=== PATIENT | female | born 1930 | race Hispanic/Latino ===

== ENCOUNTER 2019-01-08 17:46 | Inpatient (IN) | payer MEDICARE, OTHER ==
[~2019-01-08] VITALS: Ht 144.8 cm; Wt 68.1 kg
[2019-01-08] MEDS ORDERED: ONDANSETRON HCL 4 MG/2 ML VIAL ONE (18:28)
[2019-01-08] MEDS ORDERED: MORPHINE SULFATE 2 MG/ML 1ML SYG ONE ×2 (18:29→22:05)
[2019-01-08 19:13] LABS: BASOPHILS % (AUTO) 0.5 % (0.0-5.0); EOSINOPHILS % (AUTO) 2.1 % (0.0-8.0); HEMATOCRIT 31.2 % (36-48); LYMPHOCYTES % (AUTO) 23.4 % (21.0-51.0); MEAN CORPUSCULAR HEMOGLOBIN 30.4 pg (27.0-33.0); MEAN CORPUSCULAR HGB CONC 34.2 g/dL (32.0-36.0); MEAN CORPUSCULAR VOLUME 88.8 fL (79-99); MONOCYTES % (AUTO) 4.8 % (3.0-13.0); NEUTROPHILS % (AUTO) 69.2 % (40.0-77.0); PLATELET COUNT (AUTO) 131 K/uL (130-400); RED BLOOD CELL COUNT(AUTO) 3.52 MIL/uL (4.00-5.50); RED CELL DISTRIBUTION WIDTH 14.2 % (11.0-15.5); WHITE BLOOD COUNT (AUTO) 7.4 K/uL (4.8-10.8)
[2019-01-08 19:17] LABS: CREATININE 1.6 mg/dL (0.5-1.5)
[2019-01-08 19:22] LABS: BILIRUBIN,DIRECT 0.1 mg/dL (0.0-0.3); BILIRUBIN,TOTAL 0.4 mg/dL (0.2-1.0); TOTAL PROTEIN, SERUM 6.6 g/dL (6.0-8.3)
[2019-01-08 19:25] LABS: INR 0.97 (0.85-1.15); PARTIAL THROMBOPLASTIN TIME 29.4 SEC (26.3-35.5); PROTHROMBIN TIME 10.2 SEC (9.6-11.6)
[2019-01-08 19:37] LABS: B-TYPE NATRIURETIC PEPTIDE 105 pg/mL (0-100)
[2019-01-08] MEDS ORDERED: HYDRALAZINE HCL 20 MG/ML VIAL IV PRN (20:45)
[2019-01-08] MEDS ORDERED: ACETAMINOPHEN 325 MG TAB PO PRN ×2 (20:45)
[2019-01-08 21:00] VITALS: BP 123/52
[2019-01-08] MEDS: INSULIN HUMULIN R 100 UNIT/ML 3ML SQ SCH (21:00)
[2019-01-08] MEDS ORDERED: CARV25TA PO (21:33)
[2019-01-08] MEDS ORDERED: ESCI10TA54 PO (21:33)
[2019-01-08] MEDS ORDERED: FURO20TA4 PO (21:33)
[2019-01-08] MEDS ORDERED: ALBU8.5H8 IH (21:33)
[2019-01-08] MEDS ORDERED: FERR324T4 PO (21:33)
[2019-01-08] MEDS ORDERED: INSLAN SQ (21:33)
[2019-01-08] MEDS ORDERED: AMLO2.5T4 PO (21:33)
[2019-01-08] MEDS ORDERED: DOCU100C33 PO (21:33)
[2019-01-08] MEDS ORDERED: CETI10TA57 PO (21:33)
[2019-01-08] MEDS ORDERED: ASPI-1181 PO (21:33)
[2019-01-08] MEDS ORDERED: ONDA8TAB12 PO (21:33)
[2019-01-08] MEDS ORDERED: ESOM40CA54 PO (21:33)
[2019-01-08] MEDS ORDERED: ALPR0.255 PO ×2 (21:33)
[2019-01-08] MEDS ORDERED: GABA-529 PO (21:33)
[2019-01-08] MEDS ORDERED: PRAV40TA3 PO (21:33)
[2019-01-08] MEDS ORDERED: CYAN250010 PO (21:33)
[2019-01-08] MEDS ORDERED: MORPHINE SULFATE 4 MG/1ML SYG IV PRN (21:45)
[2019-01-08 22:26] LABS: APPEARANCE,URINE Clear (CLEAR); BILIRUBIN,URINE Negative (NEGATIVE); COLOR,URINE Yellow (YELLOW); GLUCOSE, URINE (UA) 250 mg/dL (NEGATIVE); KETONES,URINE Negative (NEGATIVE); LEUKOCYTE ESTERASE ,URINE Trace (NEGATIVE); NITRATE,URINE Negative (NEGATIVE); OCCULT BLOOD,URINE Negative (NEGATIVE); PROTEIN,URINE Negative (NEGATIVE); UROBILINOGEN,URINE 0.2 mg/dL (0.2-1.0)
[2019-01-08 22:36] LABS: BACTERIA,URINE Rare /HPF (None Seen); RBC,URINE 0-1 /HPF (0-1); WBC,URINE 0-1 /HPF (0-1)
[2019-01-08] MEDS ORDERED: MORPHINE SULFATE 4 MG/1ML SYG ONE (23:17)
[2019-01-08 23:42] VITALS: BP 111/57
[2019-01-08] MEDS: SODIUM CHLORIDE 0.9% 1000ML 1,000 ML IV SCH (23:51)
[2019-01-08] MEDS: FAMOTIDINE/PF 20 MG/2 ML VIAL IV SCH (23:51)
[2019-01-09] VITALS (29 sets, daily range): BP systolic 107–172; BP diastolic 45–72
[2019-01-09] MEDS ORDERED: HYDR-4153 PO (01:46)
[2019-01-09] MEDS ORDERED: NATE120T9 PO (01:46)
[2019-01-09 05:46] LABS: BASOPHILS % (AUTO) 0.3 % (0.0-5.0); EOSINOPHILS % (AUTO) 2.3 % (0.0-8.0); HEMATOCRIT 28.6 % (36-48); LYMPHOCYTES % (AUTO) 28.1 % (21.0-51.0); MEAN CORPUSCULAR HEMOGLOBIN 30.7 pg (27.0-33.0); MEAN CORPUSCULAR HGB CONC 34.9 g/dL (32.0-36.0); MONOCYTES % (AUTO) 7.6 % (3.0-13.0); NEUTROPHILS % (AUTO) 61.7 % (40.0-77.0); PLATELET COUNT (AUTO) 139 K/uL (130-400); RED BLOOD CELL COUNT(AUTO) 3.25 MIL/uL (4.00-5.50); RED CELL DISTRIBUTION WIDTH 13.8 % (11.0-15.5)
[2019-01-09] MEDS: INSULIN HUMULIN R 100 UNIT/ML 3ML SQ SCH ×3 (06:00→21:26)
[2019-01-09 06:06] LABS: INR 0.98 (0.85-1.15); PROTHROMBIN TIME 10.3 SEC (9.6-11.6)
[2019-01-09 08:58] LABS: HEMOGLOBIN A1C 9.7 % (4.0-6.0)
[2019-01-09] MEDS: CARVEDILOL 25 MG TABLET PO SCH ×2 (09:00→21:18)
[2019-01-09 09:03] LABS: CHOLESTEROL 150 mg/dL (<200); CREATINE KINASE, TOTAL 56 U/L (21-232); HDL CHOLESTEROL 142 mg/dL (35-85); LDL DIRECT 68 mg/dL (0-99); MYOGLOBIN 112 ng/mL (10-92); TRIGLYCERIDES 261 mg/dL (30-200); TROPONIN I < 0.04 ng/mL (0.00-0.06)
[2019-01-09] MEDS: DOCUSATE SODIUM 100 MG CAP PO SCH (09:15)
--- NOTE | 2019-01-09 09:25 | NUR ---
NEPHROLOGY DR. ANNE IN TO SEE PATIENT. NEW ORDERS RECEIVED.
[2019-01-09] MEDS: MORPHINE SULFATE 2 MG/ML 1ML SYG IVP PRN ×2 (10:24→16:22)
--- NOTE | 2019-01-09 10:40 | NUR ---
CARDIOLOGY DR. SALMERON IN TO SEE PATIENT FOR SURGERY CLEARANCE.
--- NOTE | 2019-01-09 12:11 | NUR ---
ANGELES MET W PT AND HER DAUGHTER AT [facility]. PT L[place], WITH ANOTHER DUAG[place]TER- WAS HERE ON VACATION\\ [place] HAS 2 STEP, USES A CANE ONLY, SEMI INDEPENDENT,DAUGHTER PROVIDES ALL CARE HERE DAUGHTER RAINER WILL PROVIDE ALL CARE. 'PT WILL STAY LONG NEEDED', DECLINING SNF. CALL TO [facility]- THEY WILL DO HH AND P-TX IF DR. KATE WRITES FOR IT. WILL AWAIT OUTCOME OF SURGERY. DCP HOME W/ HH/P-TX RXD BY DR. KATE. ADVISED DTR THAT IF PT IS STAYING, BEST TO ESTABLISH HERSELF W A PMD/CLINIC HERE Addendum: 01/09/19 at 1220 by ANUSHKA NAVA RN Amended: Links added.
[2019-01-09] MEDS: SODIUM CHLORIDE 0.9% 1000ML 1,000 ML IV SCH ×2 (13:15→22:10)
--- NOTE | 2019-01-09 16:19 | NUR ---
RD Notification Pt admitted for Trimalleolar Fracture, pending surgical procedure. Pt with advanced age. Obesity Class I (BMI 32.5). Pt with increased protein needs pending surgery due to advanced age; Rec Adv diet as tolerated when medically feasible, Add 30mL Promod TID. Pt monitored labs: BUN 22, Cr 1.6, GFR 32, Glu 291, A1C 9.7, EAG 232, TG 261, HDL 142, Alb 3.0. RD to continue to monitor. Please notify as additional nutrition concerns arise. Thank you. Addendum: 01/09/19 at [address] RD Amended: Links added.
--- NOTE | 2019-01-09 16:55 | NUR ---
TO OR HOLDING PATIENT TRANSFERRED TO OR HOLDING WITH FAMILY AT SIDE. SHE IS AWAKE AND ALERT WITH NO SIGNS OF DISTRESS NOTED.
[2019-01-09] MEDS ORDERED: CEFAZOLIN SODIUM 1 GM VIAL ONE (17:09)
[2019-01-09] MEDS ORDERED: PROPOFOL 10 MG/ML 20ML VIAL IV ONE (17:17)
[2019-01-09] MEDS ORDERED: ROCURONIUM 10MG/1ML SYR 10 MG/ML ML ONE (17:17)
[2019-01-09] MEDS ORDERED: PHENYLEPHRINE HCL 10 MG/ML 1ML VIAL IV ONE (17:34)
[2019-01-09] MEDS ORDERED: FENTANYL CITRATE PF 50 MCG/1 ML 2ML VIAL ONE (17:57)
[2019-01-09] MEDS ORDERED: LIDOCAINE 2%-EPI 1:200,000 20 ML VIAL IJ ONE (18:48)
[2019-01-09] MEDS ORDERED: ROPIVACAINE 0.5% 5MG/ML 30ML IJ ONE (18:48)
[2019-01-09] MEDS ORDERED: SODIUM CHLORIDE 0.9% 1000ML 1,000 ML IV SCH (18:50)
[2019-01-09] MEDS ORDERED: GLYCOPYRROLATE 1 MG/5 ML SYRINGE ONE (18:52)
[2019-01-09] MEDS ORDERED: NEOSTIGMINE 5MG/5ML SYR IV ONE (18:52)
[2019-01-09] MEDS ORDERED: TRAMADOL HCL 50 MG TABLET PO PRN (19:00)
[2019-01-09] MEDS ORDERED: FERROUS FUMARATE 324 MG TABLET PO PRN (19:00)
[2019-01-09] MEDS ORDERED: LIDOCAINE HCL-MPF 1% 2ML VIAL IVP PRN (19:00)
[2019-01-09] MEDS ORDERED: DIPHENHYDRAMINE HCL 25 MG CAPSULE PO PRN (19:00)
[2019-01-09] MEDS ORDERED: POTASSIUM CHLORIDE 20MEQ/100ML 100 ML IV PRN (19:00)
[2019-01-09] MEDS ORDERED: POTASSIUM CHLORIDE 10% ELIXIR 20 MEQ/15 ML UDCUP PO PRN (19:00)
[2019-01-09] MEDS ORDERED: DiphenhydrAMINE HCL 50 MG/ML VIAL IVP PRN (19:00)
[2019-01-09] MEDS ORDERED: ONDANSETRON HCL 4 MG/2 ML VIAL ONE (19:15)
--- NOTE | 2019-01-09 20:45 | NUR ---
PACU TRANSFER. RECEIVED FROM [place] IN PACU AT THIS TIME. PT AWAKE, ALERT AND RESPONSIVE NO VERBALIZED PAIN AT THIS TIME. OXYGEN 2L/MIN VIA NC ONGOING, POST-OP VITALS BEGAN AT THIS TIME. FAMILY MEMBERS AT BEDSIDE. WILL CONTINUE TO MONITOR. Addendum: 01/09/19 at 2109 by VICKI BAUMANN RN Amended: Links added.
[2019-01-09] MEDS: FAMOTIDINE/PF 20 MG/2 ML VIAL IV SCH (21:17)
[2019-01-09] MEDS: ATORVASTATIN CALCIUM 10 MG TABLET PO SCH (21:18)
[2019-01-09] MEDS: ACETAMINOPHEN EXTRA STRENGTH 500 MG TABLET PO SCH (21:19)
[2019-01-09] MEDS ORDERED: CEFAZOLIN SODIUM 1 GM VIAL IVP SCH (22:00)
[2019-01-10] VITALS (8 sets, daily range): BP systolic 86–133; BP diastolic 41–86
[2019-01-10] MEDS: CEFAZOLIN SODIUM 1 GM VIAL IVP SCH ×2 (01:50→09:38)
[2019-01-10] MEDS: ACETAMINOPHEN EXTRA STRENGTH 500 MG TABLET PO SCH ×3 (01:58→16:35)
[2019-01-10 04:33] LABS: BASOPHILS % (AUTO) 0.1 % (0.0-5.0); EOSINOPHILS % (AUTO) 0.2 % (0.0-8.0); HEMATOCRIT 26.8 % (36-48); LYMPHOCYTES % (AUTO) 17.8 % (21.0-51.0); MEAN CORPUSCULAR HEMOGLOBIN 30.8 pg (27.0-33.0); MEAN CORPUSCULAR HGB CONC 34.4 g/dL (32.0-36.0); MEAN CORPUSCULAR VOLUME 89.5 fL (79-99); MONOCYTES % (AUTO) 6.2 % (3.0-13.0); NEUTROPHILS % (AUTO) 75.7 % (40.0-77.0); PLATELET COUNT (AUTO) 126 K/uL (130-400); RED BLOOD CELL COUNT(AUTO) 2.99 MIL/uL (4.00-5.50); RED CELL DISTRIBUTION WIDTH 14.2 % (11.0-15.5); WHITE BLOOD COUNT (AUTO) 6.5 K/uL (4.8-10.8)
[2019-01-10 04:36] LABS: HEMOGLOBIN A1C 9.4 % (4.0-6.0)
[2019-01-10 04:51] LABS: CREATININE 1.5 mg/dL (0.5-1.5); POTASSIUM 3.8 mmol/L (3.5-5.1)
[2019-01-10] MEDS: INSULIN HUMULIN R 100 UNIT/ML 3ML SQ SCH ×4 (06:15→20:36)
[2019-01-10] MEDS: SODIUM CHLORIDE 0.9% 1000ML 1,000 ML IV SCH ×2 (08:36→16:24)
[2019-01-10] MEDS ORDERED: PSYLLIUM SEED 1 EACH PACKET ONE (09:30)
[2019-01-10] MEDS: POLYETHYLENE GLYCOL 3350 17 GM POWD.PACK PO SCH (09:37)
[2019-01-10] MEDS: DOCUSATE SODIUM 100 MG CAP PO SCH (09:37)
[2019-01-10] MEDS: CALCIUM CARBONATE 500 MG TABLET PO PRN ×2 (09:38→20:35)
[2019-01-10] MEDS: CARVEDILOL 25 MG TABLET PO SCH ×2 (09:39→20:35)
[2019-01-10] MEDS: OXYCODONE HCL 5 MG TAB PO PRN ×2 (09:44→17:30)
[2019-01-10] MEDS: PSYLLIUM SEED 1 EACH PACKET PO SCH (11:58)
--- NOTE | 2019-01-10 13:36 | NUR ---
REFERRAL TO [facility] INITIATED CALL TO [place], CONSENTS OBTAINED, PKT AND EVAL PENDING Addendum: 01/10/19 at 1340 by ANUSHKA NAVA RN CM Amended: Links added.
[2019-01-10] MEDS ORDERED: EPOETIN ALFA 10,000 UNIT/ML VIAL SQ SCH (14:15)
[2019-01-10] MEDS ORDERED: COMPOUND IV REFRIGERATED 1 EACH IVSOLN MISC PRN (14:30)
[2019-01-10] MEDS: IRON SUCROSE COMPLEX 100 MG in SODIUM CHLORIDE 0.9% 50 ML IV SCH (16:16)
[2019-01-10] MEDS: GLIPIZIDE 5 MG TABLET PO SCH (16:21)
[2019-01-10] MEDS: ATORVASTATIN CALCIUM 10 MG TABLET PO SCH (20:36)
[2019-01-10] MEDS: FAMOTIDINE/PF 20 MG/2 ML VIAL IV SCH (20:36)
[2019-01-10] MEDS: INSULIN GLARGINE 100 UNITS/ML 10 ML VIAL SQ SCH (20:39)
[2019-01-10] MEDS ORDERED: BENZOCAINE/MENTH/CETYLPYRD CL 1 EACH LOZENGE MM PRN (21:00)
[2019-01-11] VITALS (7 sets, daily range): BP systolic 117–148; BP diastolic 45–67
[2019-01-11] MEDS: ACETAMINOPHEN EXTRA STRENGTH 500 MG TABLET PO SCH ×3 (04:27→19:57)
[2019-01-11] MEDS: SODIUM CHLORIDE 0.9% 1000ML 1,000 ML IV SCH ×2 (04:28→13:19)
[2019-01-11 05:19] LABS: BASOPHILS % (AUTO) 0.3 % (0.0-5.0); EOSINOPHILS % (AUTO) 2.6 % (0.0-8.0); HEMATOCRIT 23.3 % (36-48); LYMPHOCYTES % (AUTO) 30.4 % (21.0-51.0); MEAN CORPUSCULAR HEMOGLOBIN 30.2 pg (27.0-33.0); MEAN CORPUSCULAR VOLUME 88.8 fL (79-99); NEUTROPHILS % (AUTO) 59.7 % (40.0-77.0); PLATELET COUNT (AUTO) 117 K/uL (130-400); RED BLOOD CELL COUNT(AUTO) 2.63 MIL/uL (4.00-5.50); RED CELL DISTRIBUTION WIDTH 14.2 % (11.0-15.5); WHITE BLOOD COUNT (AUTO) 5.2 K/uL (4.8-10.8)
[2019-01-11 05:24] LABS: CREATININE 1.5 mg/dL (0.5-1.5); MAGNESIUM 1.4 mg/dL (1.80-2.40); POTASSIUM 3.5 mmol/L (3.5-5.1)
[2019-01-11] MEDS: INSULIN HUMULIN R 100 UNIT/ML 3ML SQ SCH ×4 (06:18→20:26)
[2019-01-11] MEDS: GLIPIZIDE 5 MG TABLET PO SCH ×2 (06:42→16:08)
[2019-01-11] MEDS: DOCUSATE SODIUM 100 MG CAP PO SCH (08:39)
[2019-01-11] MEDS: CALCIUM CARBONATE 500 MG TABLET PO PRN (08:40)
[2019-01-11] MEDS: CARVEDILOL 25 MG TABLET PO SCH ×2 (08:40→19:58)
[2019-01-11] MEDS: POLYETHYLENE GLYCOL 3350 17 GM POWD.PACK PO SCH (08:40)
[2019-01-11] MEDS: POTASSIUM CHLORIDE 20 MEQ ERTAB PO PRN ×2 (08:41→13:24)
[2019-01-11] MEDS: OXYCODONE HCL 5 MG TAB PO PRN (08:42)
[2019-01-11] MEDS ORDERED: COMPOUND IV MISC 1 EACH IVSOLN MISC PRN (11:45)
[2019-01-11] MEDS: PSYLLIUM SEED 1 EACH PACKET PO SCH (12:04)
[2019-01-11] MEDS: IRON SUCROSE COMPLEX 100 MG in SODIUM CHLORIDE 0.9% 50 ML IV SCH (12:05)
[2019-01-11] MEDS ORDERED: ONDANSETRON HCL 4 MG/2 ML VIAL IVP PRN (17:15)
--- NOTE | 2019-01-11 17:51 | NUR ---
EXPECTING AUTH TOMORROW PER COMPA SUBMITTED THIS MORNING. ADVISED PRIMARY RN Addendum: 01/11/19 at 1753 by ANUSHKA NAVA RN CM Amended: Links added.
[2019-01-11] MEDS ORDERED: BISACODYL 5 MG TABLET.DR PO PRN (19:00)
[2019-01-11] MEDS ORDERED: ALPRAZOLAM 0.25 MG TABLET PO PRN (19:15)
[2019-01-11] MEDS: FAMOTIDINE/PF 20 MG/2 ML VIAL IV SCH (19:57)
[2019-01-11] MEDS: GABAPENTIN 100 MG CAPSULE PO SCH (19:57)
[2019-01-11] MEDS: ATORVASTATIN CALCIUM 10 MG TABLET PO SCH (19:57)
[2019-01-11] MEDS ORDERED: MAGNESIUM 4GM PREMIX 100ML 100 ML IV PRN (20:00)
[2019-01-11] MEDS ORDERED: CETIRIZINE HCL 5 MG TABLET PO SCH (21:00)
[2019-01-11] MEDS: INSULIN GLARGINE 100 UNITS/ML 10 ML VIAL SQ SCH (21:16)
[2019-01-12] MEDS: SODIUM CHLORIDE 0.9% 1000ML 1,000 ML IV SCH ×2 (00:36→09:15)
[2019-01-12] MEDS ORDERED: MAGNESIUM 2GM PREMIX 50ML 50 ML IV ONE (01:00)
[2019-01-12] MEDS ORDERED: MAGNESIUM 2GM PREMIX 50ML 50 ML IV PRN (01:00)
[2019-01-12] MEDS: ACETAMINOPHEN EXTRA STRENGTH 500 MG TABLET PO SCH ×2 (02:11→09:14)
[2019-01-12 03:48] VITALS: BP 155/73
[2019-01-12 05:20] LABS: BASOPHILS % (AUTO) 0.4 % (0.0-5.0); EOSINOPHILS % (AUTO) 3.1 % (0.0-8.0); HEMATOCRIT 23.6 % (36-48); LYMPHOCYTES % (AUTO) 32.9 % (21.0-51.0); MEAN CORPUSCULAR HEMOGLOBIN 30.8 pg (27.0-33.0); MEAN CORPUSCULAR HGB CONC 34.5 g/dL (32.0-36.0); MEAN CORPUSCULAR VOLUME 89.4 fL (79-99); MONOCYTES % (AUTO) 6.1 % (3.0-13.0); NEUTROPHILS % (AUTO) 57.5 % (40.0-77.0); NUCLEATED RED BLOOD CELLS 0.1 % (0.0-0.19); PLATELET COUNT (AUTO) 129 K/uL (130-400); RED BLOOD CELL COUNT(AUTO) 2.64 MIL/uL (4.00-5.50); RED CELL DISTRIBUTION WIDTH 14.4 % (11.0-15.5); WHITE BLOOD COUNT (AUTO) 4.7 K/uL (4.8-10.8)
[2019-01-12 05:29] LABS: CREATININE 1.4 mg/dL (0.5-1.5); MAGNESIUM 2.1 mg/dL (1.80-2.40); POTASSIUM 3.7 mmol/L (3.5-5.1)
[2019-01-12] MEDS: INSULIN HUMULIN R 100 UNIT/ML 3ML SQ SCH ×3 (05:57→16:05)
[2019-01-12] MEDS: GLIPIZIDE 5 MG TABLET PO SCH ×2 (06:48→16:01)
[2019-01-12 08:14] VITALS: BP 119/54
[2019-01-12] MEDS ORDERED: Escitalopram Oxalate 10 MG PO SCH (09:00)
[2019-01-12] MEDS ORDERED: CYANOCOBALAMIN (VITAMIN B-12) 1,000 MCG TABLET PO SCH (09:00)
[2019-01-12] MEDS ORDERED: FUROSEMIDE 20 MG TABLET PO SCH (09:00)
[2019-01-12] MEDS ORDERED: ASPIRIN 81 MG EC TAB PO SCH (09:00)
[2019-01-12] MEDS ORDERED: VENTOLIN HFA IH PRN (09:00)
[2019-01-12] MEDS: CALCIUM CARBONATE 500 MG TABLET PO PRN (09:12)
[2019-01-12] MEDS: POLYETHYLENE GLYCOL 3350 17 GM POWD.PACK PO SCH (09:12)
[2019-01-12] MEDS: GABAPENTIN 100 MG CAPSULE PO SCH (09:13)
[2019-01-12] MEDS: DOCUSATE SODIUM 100 MG CAP PO SCH (09:13)
[2019-01-12] MEDS: CARVEDILOL 25 MG TABLET PO SCH (09:13)
[2019-01-12 11:09] VITALS: BP 168/66
[2019-01-12 11:20] VITALS: BP 116/69
[2019-01-12] MEDS ORDERED: FERR325T22 PO (11:57)
[2019-01-12] MEDS: PSYLLIUM SEED 1 EACH PACKET PO SCH (12:16)
[2019-01-12] MEDS: IRON SUCROSE COMPLEX 100 MG in SODIUM CHLORIDE 0.9% 50 ML IV SCH (12:16)
[2019-01-12] MEDS ORDERED: PHARMACY COMMUNICATION MISC SCH (12:45)
[2019-01-12] MEDS ORDERED: IRON SUCROSE COMPLEX 100 MG in SODIUM CHLORIDE 0.9% 50 ML IV SCH (15:54)
[2019-01-12] MEDS: OXYCODONE HCL 5 MG TAB PO PRN (16:02)
[2019-01-12 16:06] VITALS: BP 150/57
--- NOTE | 2019-01-12 16:58 | NUR ---
RD Follow up Pt tolerating 75gm CCD with no report of GI distress. Pt with poor PO (<50%) as per family. Family reports appetite improving daily and encourages Pt to eat. RD recommend Glucerna BID,between meals, Family agrees. Pt LBM 01/08/19, Constipation with laxatives/stool softeners in place. Pt monitored labs: GFR 38, Ca 7.6, Fe 16, TIBC 199, %sat 8.0, A1C 9.4, EAG 103. RD to continue to monitor. Please notify RD as additional nutrition concerns arise. Thank you. Addendum: 01/12/19 at [address] RD Amended: Links added.
[2019-01-12] MEDS ORDERED: BISACODYL 10 MG SUPP.RECT RC PRN (19:00)
[2019-01-12] MEDS ORDERED: FERROUS SULFATE 325 MG TABLET.DR PO SCH (21:00)
--- NOTE | 2019-01-13 19:26 | NUR ---
NICKY SINGH FOR COMPA ADVISED PRIMARY RN Addendum: 01/13/19 at 1927 by ANUSHKA NAVA RN CM LATE ENTRY FOR 01/12 AT 1500 Addendum: 01/13/19 at 1927 by ANUSHKA NAVA RN CM Amended: Links added.
== END 2019-01-12 18:53 | DRG 493 ==
LOC: EDH 17:46 → EDHIP 19:43 → 4AH 20:28
PROVIDERS: ADMIT Internal Medicine; ATTEND Internal Medicine
PROC: 0SSF04Z Reposition Right Ankle Joint with Internal Fixation Device, Open Approach (ICD-10-PCS; 2019-01-09)
PROC: 0QSG04Z Reposition Right Tibia with Internal Fixation Device, Open Approach (ICD-10-PCS; principal; 2019-01-09 17:12)
PROC: 0QSJ04Z Reposition Right Fibula with Internal Fixation Device, Open Approach (ICD-10-PCS; 2019-01-09 17:12)
PROC: 3E0T3BZ Introduction of Anesthetic Agent into Peripheral Nerves and Plexi, Percutaneous Approach (ICD-10-PCS; 2019-01-09 17:12)
DX: S82.841A Displaced bimalleolar fracture of right lower leg, initial encounter for closed fracture (principal); N17.9 Acute kidney failure, unspecified; N18.3 Chronic kidney disease, stage 3 (moderate); E11.22 Type 2 diabetes mellitus with diabetic chronic kidney disease; I12.9 Hypertensive chronic kidney disease with stage 1 through stage 4 chronic kidney disease, or unspecified chronic kidney disease; E78.5 Hyperlipidemia, unspecified; E86.0 Dehydration; F41.9 Anxiety disorder, unspecified; F32.9 Major depressive disorder, single episode, unspecified; D64.9 Anemia, unspecified; H91.90 Unspecified hearing loss, unspecified ear; K59.00 Constipation, unspecified; M81.0 Age-related osteoporosis without current pathological fracture; S93.431A Sprain of tibiofibular ligament of right ankle, initial encounter; S93.01XA Subluxation of right ankle joint, initial encounter; W01.0XXA Fall on same level from slipping, tripping and stumbling without subsequent striking against object, initial encounter; X50.1XXA Overexertion from prolonged static or awkward postures, initial encounter; Z79.4 Long term (current) use of insulin; Y93.89 Activity, other specified; Y92.89 Other specified places as the place of occurrence of the external cause; Y99.8 Other external cause status
CPT/HCPCS: 36415; 71045; 73590; 73610; 76770; 80048; 80061; 80076; 81001; 82550; 82948; 83036; 83540; 83550; 83735; 83874; 83880; 84484; 85025; 85610; 85730; 93005; 97039; G0378; J0690; J0885; J1756; J1815; J2270; J2370; J2405; J2704; J2710; J2795; J3010; J3475; J3490; J7030